=== PATIENT | female | born 1965 | race Caucasian/White ===

== ENCOUNTER 2022-04-27 13:32 | Emergency (ER) | payer OTHER, SELFPAY ==
[2022-04-27 13:39] VITALS: BP 143/79; PULSE 77; RESP 18; TEMP 36.7; O2SAT 100
--- NOTE | 2022-04-27 13:45 | DI.RAD_ITS ---
Exam(s) XR WRIST LT COMP NAVICULAR EXAM: XR WRIST LT COMP NAVICULAR CLINICAL HISTORY: Distal radius pain after injury. TECHNIQUE: 2D digital imaging was performed of the left wrist. Four images were obtained. Scaphoid , PA, oblique and lateral views were obtained. COMPARISON: No exams were available for comparison FINDINGS: BONES: There is a nondisplaced oblique fracture of the distal metaphysis of the left radius. No bony destructive lesion is seen. JOINTS: The carpal bones are normally aligned. SOFT TISSUE: Normal. IMPRESSION: Nondisplaced oblique distal left radial fracture. DATA REPOSITORY: RADIATION DOSE DELIVERED:
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
== END 2022-04-27 14:55 | disposition home or self-care (01) ==
LOC: ER 14:29
PROVIDERS: Emergency Provider Emergency Medicine
DX: S52.502A Unspecified fracture of the lower end of left radius, initial encounter for closed fracture (principal); V19.9XXA Pedal cyclist (driver) (passenger) injured in unspecified traffic accident, initial encounter; Y93.55 Activity, bike riding
CPT/HCPCS: 29125; 99283; 73110; 99284